=== PATIENT | male | born 2000 | race Hispanic/Latino ===

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

== ENCOUNTER 2019-07-23 17:16 | Emergency (ER) | payer MEDICAID ==
[2019-07-23] MEDS ORDERED: Ondansetron ODT 4 MG TAB ONE (17:31)
== END 2019-07-23 17:46 | disposition home or self-care (01) ==
LOC: BURERS 17:16
DX: A08.4 Viral intestinal infection, unspecified (principal)
CPT/HCPCS: 99283; Q0162

== ENCOUNTER 2023-05-10 00:24 | Emergency (ER) | payer OTHER | END 2023-05-10 01:58 | disposition short-term general hospital (02) | LOC: BURERS 00:24 | DX: J95.00 Unspecified tracheostomy complication (principal) | CPT/HCPCS: 70360; 71045 ==